=== PATIENT | male | born 1950 | race Caucasian/White ===

== ENCOUNTER 2016-08-04 11:12 | Day surgery (SDC) | payer MEDICARE ==
[2016-08-01 20:28] LABS: BASOPHILS 0.4 %; BASOPHILS ABSOLUTE 0.03 10/3/uL (0.0-0.16); EOSINOPHILS 5.1 %; EOSINOPHILS ABSOLUTE 0.37 10/3/uL (0.0-0.53); HEMATOCRIT 46.4 % (40.0-51.0); HEMOGLOBIN 15.4 g/dL (13.6-17.8); IMMATURE GRANULOCYTES 0.4 %; IMMATURE GRANULOCYTES ABSOLUTE 0.03 10/3/uL (0.0-0.11); LYMPHOCYTES 20.3 %; LYMPHOCYTES ABSOLUTE 1.47 10/3/uL (0.67-4.30); MEAN CORPUS HGB CONC 33.2 g/dL (32.0-36.0); MEAN CORPUSCULAR HEMOGLOB 29.2 pg (26.0-34.0); MEAN CORPUSCULAR VOLUME 87.9 fL (80-100); MEAN PLATELET VOLUME 10.6 fL (9.2-13.0); MONOCYTES 10.9 %; MONOCYTES ABSOLUTE 0.79 10/3/uL (0.21-1.20); NEUTROPHILS 62.9 %; NEUTROPHILS ABSOLUTE 4.56 10/3/uL (2.02-8.40); PLATELET COUNT 254 10/3/uL (150-400); RBC DISTRIBUTION WIDTH 14.3 % (12.0-16.0); RED CELL COUNT 5.28 10/6/uL (4.7-6.1); WHITE BLOOD CELLS 7.3 10/3/uL (4.5-10.5)
[2016-08-01 20:29] LABS: MANUAL DIFF NO %
[2016-08-01 20:49] LABS: BUN (BLOOD UREA NITROGEN) 24 MG/DL (6-23); CALCIUM, SERUM 10.2 MG/DL (8.5-10.4); CHLORIDE, SERUM 107 MMOL/L (96-112); CO2 (CARBON DIOXIDE) 31 MMOL/L (24-34); CREATININE 1.91 MG/DL (0.70-1.30); GFR AFRICAN AMERICAN 41 ML/MIN (>=60); GFR NON AFRICAN AMERICAN 35 ML/MIN (>=60); GLUCOSE, SERUM 106 MG/DL (60-99); POTASSIUM, SERUM 4.9 MMOL/L (3.5-5.3); SODIUM, SERUM 143 MMOL/L (135-148)
[2016-08-01 21:01] LABS: ASCORBIC ACID (UR NOT ORDER) NEG (NEG); BILIRUBIN, URINE NEGATIVE (NEG); KETONE, URINE NEGATIVE (NEG); LEUKOCYTE ESTERASE(NOT OR TRACE (NEG); WBC (NOT ORDERED) (RFLEX) 5 (0-5)
--- NOTE | ~2016-08-04 | OP ---
Record Of Operation [facility] [address] [place]. [address] NAME: CLAUDIA TERAN III : 48 STATUS : [facility]#: [id number] AGE: 66 ADM/REG DATE : 08/04/16 MR#: [id number] REPORT SERV DATE: 08/04/16 DICTATED BY: Coreen STOKES DATE: 08/04/16 REPORT STATUS : Draft TRANSCRIBED BY: LYNDON DATE: 08/04/16 DATE OF PROCEDURE: 08/04/2016 PREOPERATIVE DIAGNOSIS: Left ureteropelvic junction stone, 1.5 cm. POSTOPERATIVE DIAGNOSIS: Left ureteropelvic junction stone, 1.5 cm. PROCEDURE: Left extracorporeal shock wave lithotripsy . ANESTHESIA: MAC. COMPLICATIONS: None. DRAINS: None. BRIEF HISTORY: Mr. Teran is a 66-year-old white male with a history of recurrent hematuria and stone disease. Recent KUB showed a 1.5 cm stone in the left collecting system and moved toward the renal pelvis, although he did not really have much in the way of pain. I decided to proceed with ESWL. I discussed the risks of bleeding, infection, anesthesia, injury to adjacent organs, need for retreatment, endoscopy, etc. Preop creatinine was 1.9, but on repeat today, it is 1.66, which is still high. He has been off his Xarelto for 2 days and PT was normal. DESCRIPTION OF PROCEDURE: Under excellent MAC anesthesia, the patient was placed supine on a Dornier lithotripsy machine. The above stone was localized at F2 and a standard posterior approach was used for a total of 3000 shocks at power level up to 4.0 were delivered to the stone. The patient tolerated the procedure well and will be discharged as an outpatient with the following instructions. DISCHARGE INSTRUCTIONS: 1. Home today. 2. Call for intractable pain, fever, excess bleeding, etc. 3. Start Xarelto in 48 hours. 4. Tamsulosin 0.4 mg one p.o. daily 30 minutes after the same meal, #14 with three refills. 5. Percocet 5/325 one to two p.o. q.4 hours p.r.n. pain. 6. Follow up in one-two weeks with a KUB. RONEL/LYNDON Coreen Stokes M.D. / [id number] Record Of Operation [place] [address] [place]. [address] NAME: CLAUDIA TERAN III : 48 STATUS : [facility] PAT#: [id number] AGE: 66 ADM/REG DATE : 08/04/16 MR#: [id number] REPORT SERV DATE: 08/04/16 DICTATED BY: Coreen STOKES DATE: 08/04/16 REPORT STATUS : Draft TRANSCRIBED BY: LYNDON DATE: 08/04/16 CC: Hans Khan M.D.
[~2016-08-04 11:12] MED LIST: ADVAIR100 INH; ASAB PO; FISH OIL1200 MG PO; LISINOPRIL40 MG PO; MULTIPLE VIT PO; OSTEO BI-FLEX1 EACH PO; PRAVACHOL40 MG PO; PROSCAR5 PO; SAW PALMETTO PO; SPIRIVA INH; TRICOR145 PO; XARELTO10 MG PO; XARELTO20 MG PO; [UNRECOGNIZED DRUG - OTHER] INH
[2016-08-04 13:02] LABS: INTERNATIONAL NORMAL RATI 1.1 UNITS (-); PROTIME (NOT ORD) 13.6 SEC (12.0-14.5)
[2016-08-04 13:07] LABS: BUN (BLOOD UREA NITROGEN) 17 MG/DL (6-23); CALCIUM, SERUM 10.6 MG/DL (8.5-10.4); CHLORIDE, SERUM 105 MMOL/L (96-112); CO2 (CARBON DIOXIDE) 32 MMOL/L (24-34); CREATININE 1.66 MG/DL (0.70-1.30); GFR AFRICAN AMERICAN 49 ML/MIN (>=60); GFR NON AFRICAN AMERICAN 42 ML/MIN (>=60); GLUCOSE, SERUM 98 MG/DL (60-99); POTASSIUM, SERUM 4.9 MMOL/L (3.5-5.3); SODIUM, SERUM 143 MMOL/L (135-148)
[2016-08-14] MEDS ORDERED: FLOMAX4 PO (10:13)
[2016-08-14] MEDS ORDERED: AUG500 PO (10:14)
[2016-08-14] MEDS ORDERED: DOCUSOFT S100 MG PO (10:14)
[2016-08-14] MEDS ORDERED: GLUCCHONDR PO (10:16)
== END 2016-08-04 18:10 | disposition home or self-care (01) ==
LOC: SDC 11:12
PROC: 0TF7XZZ Fragmentation in Left Ureter, External Approach (ICD-10-PCS; principal; 2016-08-04 13:00)
DX: N20.1 Calculus of ureter (principal); I10 Essential (primary) hypertension; I48.91 Unspecified atrial fibrillation; E78.5 Hyperlipidemia, unspecified; E78.00 Pure hypercholesterolemia, unspecified; J44.9 Chronic obstructive pulmonary disease, unspecified; G47.33 Obstructive sleep apnea (adult) (pediatric); Z87.891 Personal history of nicotine dependence; Z86.79 Personal history of other diseases of the circulatory system; Z87.442 Personal history of urinary calculi; Z79.51 Long term (current) use of inhaled steroids; Z79.899 Other long term (current) drug therapy; Z98.890 Other specified postprocedural states
CPT/HCPCS: 36415; 50590; 74000; 80048; 81001; 85025; 85610; 93005; J2250; J3010

== ENCOUNTER 2016-08-18 11:05 | Day surgery (SDC) | payer MEDICARE ==
--- NOTE | ~2016-08-18 | OP ---
Record Of Operation [facility] [address] [place]. [address] NAME: CLAUDIA TERAN III : 48 STATUS : [facility]#: [id number] AGE: 66 ADM/REG DATE : 08/18/16 MR#: [id number] REPORT SERV DATE: 08/18/16 DICTATED BY: Coreen STOKES DATE: 08/18/16 REPORT STATUS : Draft TRANSCRIBED BY: LYNDON DATE: 08/18/16 DATE OF PROCEDURE: 08/18/2016 PREOPERATIVE DIAGNOSIS: Left proximal ureteral stones. POSTOPERATIVE DIAGNOSIS: Left proximal ureteral stones. PROCEDURE: Left extracorporeal shock wave lithotripsy, retreatment. SURGEON: Coreen Stokes M.D. ANESTHESIA: MAC. COMPLICATIONS: None. DRAINS: None. BRIEF HISTORY: Mr. Teran is a 66-year-old white male with a large left UPJ stone, who underwent ESWL on 08/04/2016. It appeared to fragment partially. He passed the stone, but had about a 1 cm stone at the UPJ. He wanted to proceed with retreatment as early as possible occasion. He has been off his Xarelto for two days preoperatively. We discussed risks of bleeding, infection, anesthesia, injury to adjacent organs, need for entire gastric endoscopy, etc. There were no unanswered questions. DESCRIPTION OF PROCEDURE: Under excellent MAC anesthesia, the patient was placed supine on the Dornier Delta II lithotripsy unit. It looked like a previous lower pole stone had moved on top of this residual fragment. We localized both stones at F2, and a total of 2500 shocks at a power level up to 5.0 were delivered. The patient tolerated the procedure well, will be discharged as an outpatient with the following instructions. DISCHARGE INSTRUCTIONS: 1. Home today. 2. Continue pain medicine as previously prescribed. 3. Call for intractable pain or fever greater than 101. 4. Follow up in my office in one to two weeks with julian Ramos/LYNDON Coreen Stokes M.D. / [id number] CC: Record Of Operation [facility] [place] [address] [place]. [address] NAME: CLAUDIA TERAN III : 48 STATUS : [facility]#: [id number] AGE: 66 ADM/REG DATE : 08/18/16 MR#: [id number] REPORT SERV DATE: 08/18/16 DICTATED BY: Coreen STOKES DATE: 08/18/16 REPORT STATUS : Draft TRANSCRIBED BY: MODL DATE: 08/18/16 Coreen Stokes M.D. Mario Mcfarlane M.D.
[~2016-08-18 11:05] MED LIST changes: +AUG500 PO; +DOCUSOFT S100 MG PO; +FLOMAX4 PO; +GLUCCHONDR PO
== END 2016-08-18 16:18 | disposition home or self-care (01) ==
LOC: SDC 11:05
PROC: 0TC78ZZ Extirpation of Matter from Left Ureter, Via Natural or Artificial Opening Endoscopic (ICD-10-PCS; principal; 2016-08-18 13:00)
DX: N20.1 Calculus of ureter (principal); J44.9 Chronic obstructive pulmonary disease, unspecified; I10 Essential (primary) hypertension; E78.5 Hyperlipidemia, unspecified; Z98.890 Other specified postprocedural states; Z87.891 Personal history of nicotine dependence; Z79.899 Other long term (current) drug therapy
CPT/HCPCS: 50590; 74000; J2250; J2405; J3010